=== PATIENT | female | born 1995 | race Two or more races ===

== ENCOUNTER 2019-04-11 19:36 | Emergency (ER) | payer SELFPAY ==
[~2019-04-11] VITALS: Ht 152.4 cm; Wt 55.8 kg
--- NOTE | 2019-04-11 21:00 | NUR ---
PT OFFERED [facility] OPTIONS BUT PREFFERS TO GO BACK TO THE STREET. PT GIVEN FOOD. HOMELESS WAIVER SIGNED
[2019-04-11 21:29] VITALS: BP 132/80
--- NOTE | 2019-04-11 21:30 | NUR ---
Patient discharged to home in stable condition. Written and verbal after care instructions given. Patient verbalizes understanding of instruction.Pt ambulatory with a steady gait
== END 2019-04-11 21:31 | disposition home or self-care (01) ==
LOC: ER 19:38
DX: J06.9 Acute upper respiratory infection, unspecified (principal); Z59.0 Homelessness
CPT/HCPCS: 71045-TC